=== PATIENT | female | born 1965 | race Caucasian/White ===

== ENCOUNTER 2016-10-19 11:29 | Emergency (ER) | payer OTHER ==
[~2016-10-19] VITALS: Ht 160 cm; Wt 60.0 kg
[2016-10-19 11:30] VITALS: BP 134/70; PULSE 103; RESP 20; TEMP 98; O2SAT 98
--- NOTE | 2016-10-19 11:52 | PD ---
HPI Chief Complaint: Skin Problem Time Seen by Provider: 11:52 Travel History International Travel<30 days: No Contact w/Intl Traveler<30days: No Traveled to known affect area: No History of Present Illness HPI 51-year-old female presents the emergency department with abscess to the left buttock which started 4 days ago. Patient states the area has gotten progressively more painful and swollen and indurated. Patient has no history of this previous to this visit. Patient is unsure why it started. She denies fever, chills, or other symptoms. Patient has no history of MRSA. Patient states the pain is a 9 out 10. There has been no spontaneous drainage. She has no known drug allergies. [facility] Social History Alcohol Use: Yes Tobacco Use: No Substance Use: No Allergies-Medications (Allergen,Severity, Reaction): Coded Allergies: No Known Allergies (Unverified , 10/19/16) Review of Systems Except as stated in HPI: all other systems reviewed are Neg General / Constitutional: No: Fever Eyes: No: Visual changes HENT: No: Headaches Cardiovascular: No: Chest Pain or Discomfort Respiratory: No: Shortness of Breath Gastrointestinal: No: Abdominal Pain Genitourinary: No: Dysuria Musculoskeletal: No: Pain Skin: Positive Lesions (see history of present illness.), No Rash Neurologic: No: Weakness Psychiatric: No: Depression Endocrine: No: Polydipsia Hematologic/Lymphatic: No: Easy Bruising Physical Exam Narrative GENERAL: Patient appears in moderate distress. SKIN: Warm and dry. Normal color. Normal turgor. Patient has a 4 cm diameter firm indurated erythematous tender hot abscess to the left lower buttock with pointing present. There is no other signs of streaking or lymphangitis. HEAD: Atraumatic. Normocephalic. EYES: Pupils equal and round. No scleral icterus. No injection or drainage. ENT: No nasal bleeding or discharge. Mucous membranes pink and moist. Pharynx is clear. Airway is patent. NECK: Trachea midline. Supple. CARDIOVASCULAR: Regular rate and rhythm. RESPIRATORY: No accessory muscle use. Clear to auscultation. Breath sounds equal bilaterally. MUSCULOSKELETAL: Extremities without clubbing, cyanosis, or edema. No obvious deformities. NEUROLOGICAL: Awake and alert. No obvious cranial nerve deficits. Motor grossly within normal limits. Five out of 5 muscle strength in the arms and legs. Normal speech. PSYCHIATRIC: Appropriate mood and affect; insight and judgment normal. Data Data Last Documented VS Vital Signs Date Time Temp Pulse Resp B/P Pulse Ox O2 Delivery O2 Flow Rate FiO2 10/19/16 11:30 98.0 103 20 134/70 98 Room Air Orders Lidocai-Epi 1%-1:100,000 Inj (Xylocaine- (10/19/16 12:00) MDM Medical Decision Making Medical Screen Exam Complete: Yes Emergency Medical Condition: Yes Differential Diagnosis Cellulitis. Abscess. MRSA. Narrative Course Patient is medically stable at time of exam. I&D of abscess is performed with packing placed. Please see procedure note. Wound culture is sent to the lab. Patient is given ibuprofen 600 mg 4 times a day #40. Patient is given Bactrim DS twice a day 10 days. Patient is given tramadol 50 mg one every 6 hours when necessary pain #20 Patient is to rest, push fluids, and return in 2 days for wound check and packing removal Patient to follow sooner if worsening symptoms develop. Procedures Procedure Narrative After the risks and benefits were discussed the following procedure was performed: INCISION AND DRAINAGE OF ABSCESS: The area was prepped and was sterilely draped. A subcutaneous wheal of 1 % Xylocaine with epi with a total number 3 mL was used to anesthetize the area. The area was properly anesthetized. A number 11 scalpel was used to make a 1 -cm incision across the area of the abscess. Cultures were obtained. The abscess was drained an irrigated with normal saline. Quarter inch iodoform packing was placed in the wound. Sterile dressing applied. Patient advised to have packing removed in two days. Diagnosis Primary Impression: Abscess Referrals: Primary Care Physician Patient Instructions: Abscess Incision and Drainage (ED), General Instructions Additional Instructions: I&D of abscess is performed with packing placed. Please see procedure note. Wound culture is sent to the lab. Patient is given ibuprofen 600 mg 4 times a day #40. Patient is given Bactrim DS twice a day 10 days. Patient is given tramadol 50 mg one every 6 hours when necessary pain #20 Patient is to rest, push fluids, and return in 2 days for wound check and packing removal Patient to follow sooner if worsening symptoms develop. Med/Other Pt SpecificInfo: Prescription(s) given Disposition: 01 DISCHARGE HOME Condition: Stable Fransisco Zhao Oct 19, 2016 11:52
[2016-10-19] MEDS: LIDOCAINE 1%/EPINEPHrine 1:100,000 SOLN 20 ML VIAL INFIL ONE ×2 (12:06→12:07)
[2016-10-19] MEDS ORDERED: BACT800T5 PO (12:10)
[2016-10-19] MEDS ORDERED: IBUP-232 PO (12:10)
[2016-10-19] MEDS ORDERED: TRAM50TA PO (12:10)
== END 2016-10-19 13:15 | disposition home or self-care (01) ==
LOC: NEPK 11:29
DX: L02.31 Cutaneous abscess of buttock (principal); B95.62 Methicillin resistant Staphylococcus aureus infection as the cause of diseases classified elsewhere
CPT/HCPCS: 10061; 86403; 87070; 87186; 87205

== ENCOUNTER 2017-05-06 10:38 | Emergency (ER) | payer SELFPAY ==
[~2017-05-06] VITALS: Ht 160 cm; Wt 60.0 kg
[~2017-05-06 10:38] MED LIST: BACT800T5 PO; IBUP-232 PO; TRAM50TA PO
[2017-05-06 10:40] VITALS: BP 157/82; PULSE 101; RESP 18; TEMP 97.8; O2SAT 98
[2017-05-06] MEDS ORDERED: ALEV220T14 PO (11:34)
--- NOTE | 2017-05-06 11:40 | PD ---
HPI Chief Complaint: Back/ Neck Pain or Injury Time Seen by Provider: 11:28 Travel History International Travel<30 days: No Contact w/Intl Traveler<30days: No Traveled to known affect area: No History of Present Illness HPI 51-year-old female presents to the emergency department complaint of headache and neck pain after a porcelain drawer fell off a shelf hitting her in the right side of the head yesterday while at [facility]. She denies loss of consciousness. Reports vomiting one time this morning. Denies focal deficits or weakness. Denies confusion, disorientation, change in mentation, slurred speech. Denies fevers. Denies paresthesias, loss of sensation, decreased range of motion, decreased strength bilateral upper extremities. Has taken Aleve for symptom management. Rates pain 11/05. Describes it as a throbbing, aching sensation. Neck pain is midline. Headache is right-sided. Pain is aggravated with movement. No known relieving factors. Denies significant past medical history. No known allergies. Has no medical complaints. No other modifying factors or associated signs and symptoms. 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 HEAD: Atraumatic. Normocephalic. No facial droop noted. Tongue midline. EYES: Pupils equal and round at 3 mm with brisk reaction. No scleral icterus. No injection or drainage. PERRLA. EOMI. ENT: Mucosa pink and moist. Airway patent. NECK: Patient has midline tenderness on the patient of the cervical spine. Cervical collar placed. Trachea midline. No lymphadenopathy. CARDIOVASCULAR: Regular rate. RESPIRATORY: No accessory muscle use. GASTROINTESTINAL: Flat. MUSCULOSKELETAL: No obvious deformities. No clubbing. No cyanosis. No edema. NEUROLOGICAL: Awake and alert. Oriented 3. No obvious cranial nerve deficits. Motor grossly within normal limits. Normal speech. No ataxia. No mid -line drift. Moves all extremities. 5/5 strength to all extremities. PSYCHIATRIC: Appropriate mood and affect; insight and judgment normal. Data Data Last Documented VS Vital Signs Date Time Temp Pulse Resp B/P (MAP) Pulse Ox O2 Delivery O2 Flow Rate FiO2 05/06/17 10:40 97.8 101 18 157/82 (107) [address] Brain W/O Iv Contrast(Rout) (05/06/17 ) Ct Cerv Spine W/O Contrast (05/06/17 ) Methocarbamol (Robaxin) (05/06/17 11:45) MDM Medical Decision Making Medical Screen Exam Complete: Yes Emergency Medical Condition: Yes Medical Record Reviewed: Yes Differential Diagnosis Head injury, brain bleed, cervical strain, cervical fracture Narrative Course 51-year-old female with head injury and neck pain from being hit in head with a piece of porcelain that fell off of a shelf yesterday while at [facility]. She denies loss of consciousness. Cervical collar placed in the ER. Robaxin ordered. CT head and cervical spine ordered. 1300: CT head and cervical spine with no acute findings. Discussed findings with the patient. Ibuprofen ordered and administered in the ER. Ibuprofen and Robaxin prescribed for home. Instructed patient to follow up with primary care provider. Patient verbalizes understanding and agreement with treatment plan. Patient is medically cleared and stable for discharge. Discussed reasons to return to the emergency department. Patient agrees with treatment plan. The patients vital signs are stable and the patient is stable for outpatient follow- up and treatment. Patient discharged home, stable and in no acute distress. Diagnosis Primary Impression: Head injury Qualified Codes: S09.90XA - Unspecified injury of head, initial encounter Additional Impression: Neck pain Referrals: [facility] Primary Care Physician Patient Instructions: Acute Neck Pain (ED), Cervical Neck Strain Exercises (GEN ), General Instructions, Head Injury (ED) Additional Instructions: Tylenol or ibuprofen as directed and as needed for pain Robaxin as prescribed and as needed for muscle spasms Heating pad and/or ice to affected area to reduce pain Avoid aggravating activities; increase activity as tolerated Follow-up with primary care provider Return to emergency department immediately with worsening of symptoms Med/Other Pt SpecificInfo: Prescription(s) given Scripts Ibuprofen (Ibuprofen) 800 Mg Tab 800 MG PO Q6HR Y for PAIN, #30 TAB 0 Refills Prov: Julianna Armas 05/06/17 Methocarbamol (Robaxin) 500 Mg Tab 500 MG PO QID Y for MUSCLE SPASM, #30 TAB 0 Refills Prov: Julianna Armas 05/06/17 Disposition: 01 DISCHARGE HOME Condition: Stable Julianna Armas May 06, 2017 11:40
[2017-05-06] MEDS ORDERED: METHOCARBAMOL 500 MG TAB PO ONE (11:45)
--- NOTE | 2017-05-06 12:29 | RADRPT ---
EXAM DATE/TIME: 05/06/2017 12:03 [facility] COMPARISON: No previous studies available for comparison. INDICATIONS : Trauma to top of head,neck pain with vomiting RADIATION DOSE: 56.35 CTDIvol (mGy) MEDICAL HISTORY : None SURGICAL HISTORY : Hysterectomy. ENCOUNTER: Initial ACUITY: 1 day PAIN SCALE: 7/10 LOCATION: cranial TECHNIQUE: Multiple contiguous axial images were obtained of the head. Using automated exposure control and adj ustment of the mA and/or kV according to patient size, radiation dose was kept as low as reasonably a chievable to obtain optimal diagnostic quality images. DICOM format image data is available electro nically for review and comparison. FINDINGS: CEREBRUM: The ventricles are normal for age. No evidence of midline shift, mass lesion, hemorrhage or acute in farction. No extra-axial fluid collections are seen. POSTERIOR FOSSA: The cerebellum and brainstem are intact. The 4th ventricle is midline. The cerebellopontine angle i s unremarkable. EXTRACRANIAL: The visualized portion of the orbits is intact. SKULL: The calvaria is intact. No evidence of skull fracture. CONCLUSION: Negative Jefferson Gonzalez MD FACR on May 06, 2017 at 12:26 Board Certified Radiologist. This report was verified electronically.
--- NOTE | 2017-05-06 12:44 | RADRPT ---
EXAM DATE/TIME: 05/06/2017 12:03 [facility] COMPARISON: No previous studies available for comparison. INDICATIONS : Trauma to top of head,neck pain,vomiting RADIATION DOSE: 30.96 CTDIvol (mGy) MEDICAL HISTORY : None SURGICAL HISTORY : Hysterectomy. ENCOUNTER: Initial ACUITY: 1 day PAIN SCALE: 7/10 LOCATION: neck TECHNIQUE: Volumetric scanning of the cervical spine was performed. Multiplanar reconstructions i n the sagittal, coronal and oblique axial planes were performed. Using automated exposure control a nd adjustment of the mA and/or kV according to patient size, radiation dose was kept as low as reason ably achievable to obtain optimal diagnostic quality images. DICOM format image data is available e lectronically for review and comparison. FINDINGS: VERTEBRAE: Normal vertebral body height. ALIGNMENT: No evidence of subluxation. C2-C3: The bony spinal canal is normal in size. No evidence of disc bulge or herniation. The neura l foramina are bilaterally patent. C3-C4: The bony spinal canal is normal in size. No evidence of disc bulge or herniation. The neura l foramina are bilaterally patent. C4-C5: The bony spinal canal is normal in size. No evidence of disc bulge or herniation. The neura l foramina are bilaterally patent. C5-C6: The bony spinal canal is normal in size. No evidence of disc bulge or herniation. The neura l foramina are bilaterally patent. C6-C7: The bony spinal canal is normal in size. No evidence of disc bulge or herniation. The neura l foramina are bilaterally patent. C7-T1: The bony spinal canal is normal in size. No evidence of disc bulge or herniation. The neura l foramina are bilaterally patent. CONCLUSION: Negative for fracture. Jefferson Gonzalez MD FACR on May 06, 2017 at 12:41 Board Certified Radiologist. This report was verified electronically.
[2017-05-06] MEDS ORDERED: IBUP1TAB7 PO (13:03)
[2017-05-06] MEDS ORDERED: ROBA500T PO (13:03)
[2017-05-06] MEDS ORDERED: IBUPROFEN 800 MG TAB PO ONE (13:15)
== END 2017-05-06 14:00 | disposition home or self-care (01) ==
LOC: NEPK 10:38
DX: S09.90XA Unspecified injury of head, initial encounter (principal); M54.2 Cervicalgia; W22.8XXA Striking against or struck by other objects, initial encounter; Y92.512 Supermarket, store or market as the place of occurrence of the external cause
CPT/HCPCS: 70450; 72125; 99285